=== PATIENT | female | born 1970 | race Asian ===

== ENCOUNTER → 2020-10-24 16:54 | Outpatient (CLI) | payer OTHER, SELFPAY ==
--- NOTE | 2020-10-24 | DI.MG.S_ITS ---
BILATERAL DIGITAL SCREENING MAMMOGRAM 3D/2D WITH CAD: 10/24/2020 CLINICAL: Routine screening. Comparison is made to exam dated: 08/25/2018 mammogram - outside location. The tissue of both breasts is extremely dense, which lowers the sensitivity of mammography. Current study was also evaluated with a Computer Aided Detection (CAD) system. No significant masses, calcifications, or other findings are seen in either breast. There has been no significant interval change. IMPRESSION: NEGATIVE There is no mammographic evidence of malignancy. A 1 year screening mammogram is recommended. This exam was interpreted at Station ID: [id number]. NOTE: For mammograms, a report in lay terms will be sent to the patient. Approximately 15% of breast malignancies will not be visualized mammographically. In the management of a palpable breast mass, a negative mammogram must not discourage biopsy of a clinically suspicious lesion. Electronically Signed By: Malick francis/ayesha:10/26/2020 08:42:58 letter sent: Normal Exam ACR BI-RADS Category 1: Negative 3341F
== END ==
PROVIDERS: PCP Internal Medicine; Referring Provider Internal Medicine; Visit Provider Internal Medicine
DX: Z12.31 Encounter for screening mammogram for malignant neoplasm of breast (principal)
CPT/HCPCS: 77063; 77067

== ENCOUNTER 2021-12-08 18:27 | Emergency (ER) | payer OTHER, SELFPAY ==
[2021-12-08 18:33] VITALS: BP 136/75; PULSE 107; RESP 18; TEMP 36.8; O2SAT 98; BMI 23.0
--- NOTE | 2021-12-08 19:03 | ED_ITS ---
HPI - Ear Problem General Chief complaint: Ear Stated complaint: RT. EAR PAIN /MIGRAINE/COVID POS.A WEEK AGO Time Seen by Provider: 12/08/21 18:32 Source: patient Mode of arrival: Ambulatory History of Present Illness HPI Narrative: Patient is a 51-year-old female presenting to the emergency department for evaluation of right ear pain. Patient states that she noticed right ear pain beginning on 12/03/2021 after using her ear buds. She states that she has also experienced a headache with intermittent episodes of nausea. Of note, patient states that approximately 1 week ago she was diagnosed with COVID-19. No fever, chills, chest pain, vomiting, diarrhea, constipation, abdominal pain, dysuria, hematuria, ear discharge, sore throat, changes in vision, or any other concerning symptoms reported. No further concerns were voiced at this time. Related Data Previous Rx's Medication Instructions Recorded [id number] 3.3 4 drp EAR-RIGHT QID #10 ml 12/08/21 mg-3 mg-10 mg-0.5 mg/mL ear drops,susp (Cortisporin-TC) Allergies Allergy/AdvReac Type Severity Reaction Status Date / Time No Known Drug Allergies Allergy Verified 12/08/21 18:45 Review of Systems Constitutional Constitutional: Denies chills, Denies fatigue, Denies fever(s), Denies frequent falls, Reports headache(s), Denies lethargy and Denies weakness Eyes Eyes: Denies loss of vision ENT Ears, Nose, Mouth, and Throat: Denies change in voice, Denies dizziness, Denies ear discharge, Reports otalgia (Right ear), Reports headache(s), Denies neck pain, Denies sore throat, Denies throat swelling and Reports other (Pressure in right ear) Cardiovascular Cardiovascular: Denies chest pain, Denies irregular heart rhythm, Denies lightheadedness, Denies palpitations, Denies dyspnea, Denies dyspnea on exertion and Denies orthopnea Respiratory Respiratory: Denies cough, Denies dyspnea, Denies dyspnea on exertion and Denies wheezing Gastrointestinal Gastrointestinal: Denies abdominal pain, Denies change in bowel habits, Denies diarrhea, Reports nausea and Denies vomiting Genitourinary Genitourinary: Denies hematuria, Denies flank pain, Denies urinary incontinence and Denies urinary urgency Musculoskeletal Musculoskeletal: Denies back pain, Denies muscle weakness, Denies neck pain, Denies numbness and Denies tingling Integumentary/Breasts Skin/Breast: Denies pruritus, Denies erythema, Denies rash and Denies wounds Neurologic Neurologic: Denies behavioral changes, Denies confusion, Denies dizziness, Denies frequent falls, Reports headache(s), Denies loss of vision, Denies numbness, Denies tingling and Denies weakness Psychiatric Psychiatric: Denies behavioral changes and Denies confusion Endocrine Endocrine: Denies fatigue and Denies palpitations Allergic/Immunologic Allergic/Immunologic: Denies throat swelling and Denies wheezing Exam Narrative Exam Narrative: GENERAL: 51 year old patient appears stated age. Well-developed patient, in mild distress. HEAD: Atraumatic. Normocephalic. EYES: Pupils equal round and reactive. Extraocular motions intact. No scleral icterus. No injection or drainage. ENT: Nose without bleeding, purulent drainage. Throat without erythema, to nsillar hypertrophy or exudate. Airway patent. Right external ear canal erythematous and slightly swollen. Right tympanic membrane visualized without significant swelling or bulging of the tympanic membrane. No active drainage appreciated from the right ear. No appreciable tenderness to traction of the pinna of the right ear. No mastoid tenderness. NECK: Trachea midline. Non tender CARDIOVASCULAR: Regular rate and rhythm without murmurs, gallops, or rubs. RESPIRATORY: Clear to auscultation. Breath sounds equal bilaterally. No wheezes, rales, or rhonchi. GASTROINTESTINAL: Abdomen soft, non-tender, nondistended. EXTREMITIES: No edema or joint tenderness. BACK: Nontender without deformity or crepitance. No flank tenderness. NEURO: AOx3. SKIN: No rash or erythema of visible areas Initial Vital Signs Initial Vital Signs: Vital Signs Temperature 98.2 F 12/08/21 18:33 Pulse Rate 107 H 12/08/21 18:33 Respiratory Rate 18 12/08/21 18:33 Blood Pressure 136/75 12/08/21 18:33 Pulse Oximetry 98 12/08/21 18:33 Course Course Course Narrative: 400 mg of ibuprofen and for otic drops of Cortisporin administered. Orders Ordered: Discontinued Medications Ibuprofen (Ibuprofen 400 Mg Tablet) 400 mg PO NOW ONE Stop: 12/08/21 18:59 Last Admin: 12/08/21 19:15 Dose: 400 mg Documented by: LEXX Neomycin/Polymyxin/Hydrocortisone (Neomy/Polym B/Hc Otic 10 Ml) 4 drops EAR- RIGHT NOW ONE Stop: 12/08/21 18:59 Last Admin: 12/08/21 19:33 Dose: Not Given Documented by: RAMIN Vital Signs Vital signs: Vital Signs - 8 hr 12/08/21 18:33 Temperature 98.2 F Pulse Rate 107 H Respiratory Rate 18 Blood Pressure 136/75 Pulse Oximetry 98 Medical Decision Making MDM Narrative Medical decision making narrative: Differential diagnosis to consider but not limited to acute otitis pain is worse is acute otitis externa versus serous otitis media versus ruptured tympanic membrane verses malignant otitis externa versus mastoiditis. Discussed physical exam findings with patient informed her that it does appear that she has a right external ear infection. Inform the patient about provide ibuprofen and otic antibacterial drops in the emergency department today. Remaining course of antibiotics will be sent to the patient's preferred pharmacy. Patient expresses understanding and agrees to the plan. Strict return precautions were discussed with the patient prior to discharge. She states at this time she is comfortable being discharged home is stable for discharge. Discharge Plan Departure Patient Disposition: Home Clinical Impression: Otitis externa, Earache Instructions: DI for Otitis Externa Activity Restrictions/Additional Instructions: *You have been diagnosed with right otitis externa, earache *What to do: *Please continue to take your regular medications as directed. [X] New medication prescriptions sent to your pharmacy: Paulette Martinez - Cortisporin (neomycin/polymyxin B/hydrocortisone) [ ] New medication written as a paper prescription [ ] No new medications given You were evaluated in the emergency department today for right ear pain. Physical examination revealed swelling and redness in the external ear canal of the right ear. This needs to be treated with a topical antibiotic, I have prescribed Cortisporin to your preferred pharmacy. Please take this medication as directed and complete the entire course. I recommend you follow-up the primary care provider within the next 2-3 days for further evaluation. Please do not hesitate to return to the emergency department if you experience fever, worsening ear pain, pain and swelling behind the right ear, discharge from the ear, or any other concerning symptoms. *Please follow up with your primary care provider in 2-3 days, call for an appointment. Let them know you were seen in the Emergency Department and that we ask that you be seen in follow up. We will electronically transmit a record of today's note if your PCP is in our system *If you do not have a primary care provider please contact the [facility] Resource line at [phone]. They will ask some questions about your medical history and help get you set up with a doctor in the community. *Return to Emergency Department if you should have any new, worsening or concerning symptoms, such as fever greater than 101 F, shaking chills, worsening pain, persistent vomiting or other bothersome symptoms. Prescriptions: New Cortisporin-TC 3.3-3-10-0.5 mg/mL drops,suspension 4 drp EAR-RIGHT QID Qty: 10 0RF Referrals: Savannah Guan ARNP [Primary Care Provider] -
[2021-12-08] MEDS: IBUPROFEN 400 MG TABLET PO (19:15)
== END 2021-12-08 19:33 | disposition home or self-care (01) ==
PROVIDERS: Emergency Provider Physician Assistant; PCP Internal Medicine
DX: H60.91 Unspecified otitis externa, right ear (principal)
CPT/HCPCS: 99282; 99283

== ENCOUNTER → 2023-11-09 10:13 | Outpatient (CLI) | payer OTHER, SELFPAY ==
--- NOTE | 2023-11-09 10:15 | DI.MG.S_ITS ---
BILATERAL DIGITAL DIAGNOSTIC MAMMOGRAM 3D/2D: 11/09/2023 CLINICAL: Left lump. Comparison is made to exams dated: 10/24/2020 mammogram - [facility] and 08/25/2018 mammogram - outside location. Both breasts are heterogeneously dense, which may obscure small masses (category c / 51-75% glandular tissue). There are grouped punctate calcifications in the right breast at 12 o'clock middle depth. No other significant masses, calcifications, or other findings are seen in either breast. IMPRESSION: INCOMPLETE: NEEDS ADDITIONAL IMAGING EVALUATION The grouped punctate calcifications in the right breast are probably benign. A follow-up right mammogram in 6 months is recommended. There is no mammographic abnormality seen in the left axilla to correspond with the pain in the left axilla, however, targeted ultrasound of the left breast is recommended and will be performed immediately following this exam. Based on the Tyrer Cuzick model (a risk assessment model) the patient's lifetime risk is 13.7% and her 10 year risk is 3.4%. According to the ACR, ACS, and NCCN guidelines, an annual breast MRI exam along with mammogram is recommended if the patient's lifetime risk is 20% or greater. This exam was interpreted at Station ID: [id number]. NOTE: For mammograms, a report in lay terms will be sent to the patient. Approximately 15% of breast malignancies will not be visualized mammographically. In the management of a palpable breast mass, a negative mammogram must not discourage biopsy of a clinically suspicious lesion. Electronically Signed By: Selina Gates M.D. lk/:11/12/2023 09:59:00 Entry: - 11/12/2023 09:59:00 ACR BI-RADS Category 0: Incomplete 3340F
--- NOTE | 2023-11-09 10:15 | DI.US.S_ITS ---
ULTRASOUND OF LEFT AXILLA: 11/09/2023 CLINICAL: Palpable left axilla lump. Comparison is made to exams dated: 11/09/2023 mammogram, 10/24/2020 mammogram - , and 08/25/2018 mammogram - outside location. Ultrasound of the left axilla was performed on the area of interest. IMPRESSION: NEGATIVE There is no sonographic evidence of malignancy. There is no mammographic or sonographic abnormality seen in the left axilla to correspond with the palpable abnormality in the left axilla, however, clinical followup is recommended. Return to annual left mammogram screening schedule is recommended. 6 month mammogram follow up on the right is recommended for right breast calcifications. This exam was interpreted at Station ID: [id number]. Electronically Signed By: Selina scott/:11/12/2023 10:00:09 Entry: - 11/12/2023 10:21:44 letter sent: Followup Recommended Ultrasound BI-RADS: 1 Negative
== END ==
LOC: MAMMO 10:13
PROVIDERS: PCP Internal Medicine; Referring Provider Internal Medicine; Visit Provider Internal Medicine
DX: R92.2 Inconclusive mammogram (principal); R92.1 Mammographic calcification found on diagnostic imaging of breast; N63.20 Unspecified lump in the left breast, unspecified quadrant; R92.333 Mammographic heterogeneous density, bilateral breasts; N64.4 Mastodynia
CPT/HCPCS: 76642; 77066; G0279

== ENCOUNTER → 2024-05-18 13:30 | Outpatient (CLI) | payer OTHER, SELFPAY ==
--- NOTE | 2024-05-18 13:31 | DI.MG.S_ITS ---
UNILATERAL RIGHT DIGITAL DIAGNOSTIC MAMMOGRAM 3D/2D SHORT-TERM FOLLOW-UP: 05/18/2024 CLINICAL: Patient returns for a 6 month follow up. Comparison is made to exams dated: 08/25/2018 mammogram - outside location, 10/24/2020 mammogram, 11/09/2023 mammogram, and 11/09/2023 ultrasound - [facility]. The right breast is heterogeneously dense, which may obscure small masses (category c / 51-75% glandular tissue). There are stable grouped punctate calcifications in the right breast at 12 o'clock middle depth. This was not seen on the prior ultrasound. No other significant masses or calcifications are seen in the breast. IMPRESSION: PROBABLY BENIGN The stable grouped punctate calcifications in the right breast are probably benign. A follow-up mammogram in 6 months is recommended to demonstrate stability. Based on the Tyrer Cuzick model (a risk assessment model) the patient's lifetime risk is 13.7% and her 10 year risk is 3.4%. According to the ACR, ACS, and NCCN guidelines, an annual breast MRI exam along with mammogram is recommended if the patient's lifetime risk is 20% or greater. This exam was interpreted at Station ID: [id number]. NOTE: For mammograms, a report in lay terms will be sent to the patient. Approximately 15% of breast malignancies will not be visualized mammographically. In the management of a palpable breast mass, a negative mammogram must not discourage biopsy of a clinically suspicious lesion. Electronically Signed By: Scott mar/ayesha:05/18/2024 16:29:57 letter sent: Followup Recommended ACR BI-RADS Category 3: Probably benign 3343F
== END ==
PROVIDERS: PCP Internal Medicine; Referring Provider Internal Medicine; Visit Provider Internal Medicine
DX: R92.8 Other abnormal and inconclusive findings on diagnostic imaging of breast (principal); R92.1 Mammographic calcification found on diagnostic imaging of breast; R92.331 Mammographic heterogeneous density, right breast
CPT/HCPCS: 77065; G0279

== ENCOUNTER → 2024-12-27 13:00 | Outpatient (CLI) | payer OTHER, SELFPAY ==
--- NOTE | 2024-12-27 13:02 | DI.MG.S_ITS ---
MM diagnostic mammo BI: 12/27/2024. BI-RADS: 3 CLINICAL: 54-year old female for bilateral diagnostic mammogram. Tyrer-Cuzick lifetime risk of 8.3%. No personal or first-degree family history of breast cancer. PRIOR EXAMS 05/18/2024, 11/09/2023, 10/24/2020. MAMMOGRAPHY TECHNIQUE: 2D and 3D (tomosynthesis) digital mammographic views obtained, with additional images as needed for full coverage. Current study was also evaluated with a Computer Aided Detection (CAD) system. DENSITY C. The breasts are heterogeneously dense, which may obscure small masses. MAMMOGRAPHY FINDINGS Right: Upper Outer at 10:00, Middle depth: There are probably-benign grouped punctate calcifications that are unchanged in number. Left: No suspicious mass, asymmetry, microcalcification, or other abnormality seen. IMPRESSION: Right (Calcification): Upper Outer at 10:00, Middle depth * Probably Benign. Left * No evidence of malignancy. RECOMMENDATIONS Right * Six month followup with diagnostic mammography. Left * Annual screening mammography in one year. COMMENTS: Findings and recommendations were conveyed to the patient during today's evaluation. OVERALL ASSESSMENT CATEGORY BI-RADS-3: Probably Benign. ELECTRONICALLY SIGNED: Romy Mena M.D. on 12/27/2024 at 02:02:37 PM PT Interpreting Station ID: [id number]
== END ==
LOC: MAMMO 13:02
PROVIDERS: PCP Internal Medicine; Referring Provider Family Medicine; Visit Provider Family Medicine
DX: R92.8 Other abnormal and inconclusive findings on diagnostic imaging of breast (principal); R92.1 Mammographic calcification found on diagnostic imaging of breast; R92.333 Mammographic heterogeneous density, bilateral breasts
CPT/HCPCS: 77066; G0279

== ENCOUNTER → 2025-07-27 12:44 | Outpatient (CLI) | payer OTHER, SELFPAY ==
--- NOTE | 2025-07-27 12:45 | DI.MG.S_ITS ---
MM diagnostic mammo unilat RT: 07/27/2025. BI-RADS: 3 CLINICAL: 55-year old female for right diagnostic mammogram that is a follow-up to diagnostic mammogram on 12/27/2024. Tyrer-Cuzick lifetime risk of 8.2%. No personal or first-degree family history of breast cancer. PRIOR EXAMS: Mammogram(s): 12/27/2024, 05/18/2024, 11/09/2023, 10/24/2020. MAMMOGRAPHY TECHNIQUE: 2D and 3D (tomosynthesis) digital mammographic views obtained, with additional images as needed for full coverage. Current study was also evaluated with a Computer Aided Detection (CAD) system. DENSITY Right: C. The breast is heterogeneously dense, which may obscure small masses. MAMMOGRAPHY FINDINGS Right: Upper Outer at 10:00, Middle depth, measuring 0.2cm: Correlating with prior imaging concern there are grouped punctate calcifications that are unchanged in size and appearance. IMPRESSION: Right (Calcification): Upper Outer at 10:00, Middle depth, measuring 0.2cm * Probably Benign. RECOMMENDATIONS Right: Upper Outer at 10:00, Middle depth * Six month followup with diagnostic mammography. When the patient returns for short-term unilateral followup, a mammogram for the contralateral breast will also be due. COMMENTS: Findings and recommendations were conveyed to the patient during today's evaluation. OVERALL ASSESSMENT CATEGORY BI-RADS-3: Probably Benign. ELECTRONICALLY SIGNED: Meghann Tracy M.D. on 07/27/2025 at 03:26:20 PM PT Interpreting Station ID: [id number]
== END ==
LOC: MAMMO 12:45
PROVIDERS: PCP Family Medicine; Referring Provider Family Medicine; Visit Provider Family Medicine
DX: R92.8 Other abnormal and inconclusive findings on diagnostic imaging of breast (principal); R92.331 Mammographic heterogeneous density, right breast; R92.1 Mammographic calcification found on diagnostic imaging of breast
CPT/HCPCS: 77065; G0279

== ENCOUNTER 2025-08-31 09:15 | Emergency (ER) | payer OTHER, SELFPAY ==
[2025-08-31 09:33] VITALS: BP 118/65; PULSE 74; RESP 16; TEMP 36.7; O2SAT 96; BMI 25.4
--- NOTE | 2025-08-31 09:33 | EKG_ITS ---
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
--- NOTE | 2025-08-31 09:39 | DI.RAD.S_ITS ---
PROCEDURE: XR CHEST 1V INDICATIONS: CHEST PAIN TECHNIQUE: One view of the chest was acquired. COMPARISON: None. FINDINGS AND IMPRESSION: No airspace consolidation or pleural effusion on this single view study. Normal heart size. Unremarkable osseous structures. Dictated by: Rudi Shrestha M.D. on 08/31/2025 at 10:05 Approved by: Rudi Shrestha M.D. on 08/31/2025 at 10:05
[2025-08-31 09:48] LABS: Add Manual Diff / Slide Review NO; Hematocrit 42.1 % (36-46); Hemoglobin 14.1 g/dL (12.0-16.0); Lymphocytes Absolute Auto 1400 /uL (1100-4500); Mean Corpuscular HGB Conc 33.5 % (30-36); Mean Corpuscular Hemoglobin 28.5 PG (26-34); Mean Corpuscular Volume 85.0 fL (80-100); Platelet Count 293 X10^3/uL (150-400)
[2025-08-31 09:56] VITALS: PULSE 82; RESP 40; O2SAT 100
[2025-08-31 10:00] VITALS: BP 126/64; PULSE 75; RESP 21; O2SAT 99
[2025-08-31 10:02] LABS: Alanine Aminotransferase 23 IU/L (<35); Albumin 4.8 g/dL (3.5-5.0); Albumin Globulin Ratio 1.5 (1.0-2.8); Alkaline Phosphatase 70 U/L (38-126); Blood Urea Nitrogen 19 mg/dL (7-17); Calcium 9.5 mg/dL (8.4-10.2); Carbon Dioxide 29 mmol/L (22-32); Chloride 105 mmol/L (98-107); Estimated Glomerular Filt Rate > 60 mL/min (>60); Globulin 3.2 g/dL (1.7-4.1); Glucose 116 mg/dL (70-99); HEMOLYSIS < 15 (0-50); Lipase 63 U/L (23-300); Magnesium 2.1 mg/dL (1.6-2.3); Potassium 4.2 mmol/L (3.4-5.1); Sodium 140 mmol/L (137-145); Total Protein 8.0 g/dL (6.3-8.2)
[2025-08-31 10:13] LABS: NT-proBNP (BNP-Adult 18+) < 20 pg/mL (<125); Troponin I < 0.012 ng/mL (0.01-0.034)
[2025-08-31 10:30] VITALS: BP 114/69; PULSE 72; RESP 22; O2SAT 97
[2025-08-31 11:00] VITALS: BP 130/69; PULSE 67; RESP 21; O2SAT 98
--- NOTE | 2025-08-31 11:13 | PC.NURSE ---
pt reports feeling comfortable.
--- NOTE | 2025-08-31 11:20 | ED.CHESTPAIN ---
HPI - Chest Pain General Chief Complaint: Chest Pain Stated Complaint: Fell, fainted, chest pain , this morning Time Seen by Provider: 08/31/25 09:37 Source: patient Mode of arrival: Ambulatory Limitations: no limitations History of Present Illness HPI narrative: This is a 55-year-old female presenting to emergency department due to a syncopal episode yesterday. States that yesterday she was feeling some heartburn in his some pain in her chest and then had a syncopal episode. She does not report any head pain incident report any pain in the rest of her extremities. She has not presenting with any chest pain or shortness of breath currently. She has no cardiac history and no other medical history other than gastric ulcer. History of GERD as well. Related Data Previous Rx's ?Medication ?Instructions ?Recorded [id number] 3.3 4 drp EAR-RIGHT QID #10 mL 12/08/21 mg-3 mg-10 mg-0.5 mg/mL ear drops,susp (Cortisporin-TC) pantoprazole 20 mg tablet,delayed 20 mg PO DAILY #20 tabs 08/31/25 release Allergies Allergy/AdvReac Type Severity Reaction Status Date / Time No Known Drug Allergies Allergy Verified 08/31/25 09:33 Review of Systems Review of Systems Narrative: GENERAL: Denies chills, fatigue, malaise, fever, sweats. HEENT: Denies sinus pain, ear pain, sore throat, difficulty swallowing, dizziness. RESPIRATORY: Denies dyspnea, cough, wheezing, hemoptysis, sputum. CARDIOVASCULAR: Denies chest pain, palpitations, orthopnea, edema, GASTROINTESTINAL: Denies nausea, vomiting, abdominal pain, diarrhea, constipation, melena. : Denies dysuria, frequency, incontinence, hematuria, urinary retention. MUSCULOSKELETAL: denies weakness, joint pain, or bony pain SKIN: Denies rash, skin lesions, or other NEUROLOGIC: Denies weakness, headache, numbness, change in speech, confusion, seizures, incoordination. PSYCHIATRIC: No concerning psychosocial issues. 12 point review of systems is negative except for those stated above Patient History Social History Smoking Status: Never smoker Smoking Status: Never smoker Exam Narrative Exam Narrative: GENERAL: Well-developed patient, in mild distress. HEAD: Atraumatic. Normocephalic. EYES: Pupils equal round and reactive. Extraocular motions intact. No scleral icterus. No injection or drainage. ENT: Nose without bleeding, purulent drainage. Throat without erythema, tonsillar hypertrophy or exudate. Airway patent. NECK: Trachea midline. Non tender EXTREMITIES: No edema or joint tenderness. NEURO: AOx3. Cranial nerves 2-12 intact SKIN: No rash or erythema of visible areas CARDIOVASCULAR: Regular rate and rhythm without murmurs, gallops, or rubs. RESPIRATORY: Clear to auscultation. Breath sounds equal bilaterally. No wheezes, rales, or rhonchi. GASTROINTESTINAL: Abdomen soft, non-tender, nondistended. BACK: Nontender without deformity or crepitance. No flank tenderness. Initial Vital Signs Initial Vital Signs: Vital Signs Temperature 98.1 F 08/31/25 09:33 Pulse Rate 74 08/31/25 09:33 Respiratory Rate 16 08/31/25 09:33 Blood Pressure 118/65 08/31/25 09:33 Pulse Oximetry 96 08/31/25 09:33 Oxygen Delivery Method Room Air 08/31/25 09:33 Course Orders Ordered: ED Orders 08/31/25 09:39 XR chest 1V Stat EKG-12 Lead Stat 08/31/25 09:40 Complete Blood Count AUTO DIFF Stat Comprehensive Metabolic Panel Stat Lipase Stat Magnesium Stat NT-proBNP (BNP-Adult 18+) Stat Troponin I Stat 08/31/25 11:23 D Dimer Stat Discontinued Medications Ceftriaxone Sodium 1,000 mg/ (Sodium Chloride) 100 mls @ 200 mls/hr IV NOW ONE Stop: 08/31/25 10:23 Last Admin: 08/31/25 10:26 Dose: Not Given Documented By: F Azithromycin 500 mg/ Dextrose 250 mls @ 250 mls/hr IV NOW ONE Stop: 08/31/25 10:23 Last Admin: 08/31/25 10:25 Dose: Not Given Documented By: SGF Vital Signs Vital signs: Vital Signs - 8 hr 08/31/25 09:33 08/31/25 09:56 08/31/25 10:00 Temperature 98.1 F Pulse Rate 74 82 Respiratory Rate 16 40 H Blood Pressure 118/65 126/64 Pulse Oximetry 96 100 Oxygen Delivery Method Room Air 08/31/25 10:00 08/31/25 10:30 08/31/25 10:30 Temperature Pulse Rate 75 72 Respiratory Rate 21 22 Blood Pressure 114/69 Pulse Oximetry 99 97 Oxygen Delivery Method 08/31/25 11:00 08/31/25 11:00 Temperature Pulse Rate 67 Respiratory Rate 21 Blood Pressure 130/69 Pulse Oximetry 98 Oxygen Delivery Method MDM - Chest Pain Lab Data 08/31/25 09:40 08/31/25 09:40 Labs: Lab Results 08/31/25 Range/Units 09:40 WBC 4.7 (4.5-11.0) X10^3/uL RBC 4.96 (4.0-5.2) X10^6/uL Hgb 14.1 (12.0-16.0) g/dL Hct 42.1 (36-46) % MCV 85.0 (80-100) fL MCH 28.5 (26-34) PG MCHC 33.5 (30-36) % RDW 13.2 (11.6-14.8) % Plt Count 293 (150-400) X10^3/uL Neut % (Auto) 57.7 (50-75) % Lymph % (Auto) 29.5 (25-40) % [place] % (Auto) 9.1 (3-14) % Eos % (Auto) 2.9 (2-4) % Baso % (Auto) 0.8 (0-2) % Neut # (Auto) 2700 (4305-2697) /uL Lymph # (Auto) 1400 (2450-0561) /uL [place] # (Auto) 400 (0-900) /uL Eos # (Auto) 100 (0-450) /uL Baso # (Auto) 0 (0-100) /uL D-Dimer < 215 (<500) ng/ml Sodium 140 (137-145) mmol/L Potassium 4.2 (3.4-5.1) mmol/L Chloride 105 (98-107) mmol/L Carbon Dioxide 29 (22-32) mmol/L BUN 19 H (7-17) mg/dL Creatinine 0.68 (0.52-1.04) mg/dL Estimated GFR > 60 (>60) mL/min BUN/Creatinine Ratio 27.9 H (6-22) Glucose 116 H (70-99) mg/dL Calcium 9.5 (8.4-10.2) mg/dL Magnesium 2.1 (1.6-2.3) mg/dL Total Bilirubin 0.4 (0.2-1.3) mg/dL AST 32 (14-36) IU/L ALT 23 (<35) IU/L Alkaline Phosphatase 70 (38-126) U/L Troponin I < 0.012 (0.01-0.034) ng/mL NT-Pro-B Natriuret Pep < 20 (<125) pg/mL Total Protein 8.0 (6.3-8.2) g/dL Albumin 4.8 (3.5-5.0) g/dL Globulin 3.2 (1.7-4.1) g/dL Albumin/Globulin Ratio 1.5 (1.0-2.8) Lipase 63 (23-300) U/L Urine Dip Bedside Urine Glucose Negative Bedside Urine Bilirubin - Negative Bedside Urine Ketone - Negative Urine Specific [place] 1.010 Bedside Urine Occult Blood - Negative Bedside Urine pH 7.0 Bedside Urine Protein - Negative Bedside Urine Urobilinogen - Negative Bedside Urine Nitrite - Negative Bedside Urine Leukocytes - Negative Esterase Imaging Data Chest x-ray: Radiologist's Impression: [place] [address] XRay Report Signed Patient: Marlys Hsu MR#: [id number] : 1970 Acct:[id number] Age/Sex: 55 / F Date of Service: 08/31/25 Loc: ED Accession Number: [id number] Procedure: XR chest 1V Ordering Provider: Ron Boyle MD PROCEDURE: XR CHEST 1V INDICATIONS: CHEST PAIN TECHNIQUE: One view of the chest was acquired. COMPARISON: None. FINDINGS AND IMPRESSION: No airspace consolidation or pleural effusion on this single view study. Normal heart size. Unremarkable osseous structures. Dictated by: Ruid Shrestha M.D. on 08/31/2025 at 10:05 Approved by: Rudi Shrestha M.D. on 08/31/2025 at 10:05 ECG Data Interpretation: 0933: Normal sinus rhythm with a rate of 80 beats per minute, occasional PVCs. No ST elevation or T-wave abnormalities. MDM Narrative Medical decision making narrative: ED course: This is a otherwise healthy review 55-year-old female presenting to the emergency department due to a episode of chest pain last night with a syncopal episode. She is not reporting any chest pain currently. Her workup was very reassuring. CBC unremarkable. Lipase, magnesium, BNP, troponin with a normal limits. CMP unremarkable. UA unremarkable. D-dimer negative. EKG reassuring, chest x-ray showed no abnormalities. Patient does have a history of gastric ulcer in GERD which may have caused the symptoms she was experiencing. She had a completely normal neuro exam as well no concern for any kind of intracranial bleed. Heart score of 2 and we will discharge with PCP follow up CC: Syncopal episode Complicating co-morbidities: None Data collected from: Previous notes Medical records reviewed: patient was last seen in this emergency department 3 years ago for ear pain. At that time and had no pertinent medical history. Differential considered, but not limited to: Pulmonary embolism, STEMI, NSTEMI, intracranial bleed, vasovagal episode, GERD Exam documented above, pertinent findings include: Completely normal physical exam Lab Test results independently reviewed as above. Pertinent findings: All lab work within normal limits Imaging studies independently reviewed: Chest x-ray unremarkable Scores Used: Heart score of 2 MIPS Elements: None Consultations: None Treatments: None Re-evaluations: None Discussion: Discussed plan with the patient was comfortable with the plan Diagnosis: Syncopal episode Disposition: see below, along with detailed discharge instructions that have been reviewed with patient as well as indications for ED re-evaluation and additional outpatient follow up Discharge Plan Departure Patient Disposition: Home Clinical Impression: Syncopal episodes Activity Restrictions/Additional Instructions: Thank you for coming to the [facility] Emergency Department today. Your lab work today was very reassuring. There was no evidence of a heart attack, blood clot in your lung, in your neuro exam was very reassuring as well and I have low concern for any kind of intracranial bleed. This episode chest pain maybe due to the chronic GERD you have. You may take the prescribed medication to help with your gastric ulcer and GERD symptoms. Please return to the emergency department if you develop any new or worsening chest pain, loss of conscious, or any other concerning signs or symptoms. I hope you feel better soon. Please follow up with your primary care provider within a week if your symptoms continue. If you do not have a primary care provider please contact the [facility] Resource line at [phone]. They will ask some questions about your medical history and help you get set up with a provider in the community. Prescriptions: New pantoprazole 20 mg tablet,delayed release (DR/EC) 20 mg PO DAILY Qty: 20 0RF No Action Cortisporin-TC 3.3-3-10-0.5 mg/mL drops,suspension 4 drp EAR-RIGHT QID Qty: 10 0RF Referrals: Gisela Nair MD [Primary Care Provider, Family Practice] Stand Alone Forms: Patient Portal/API
[2025-08-31 11:34] VITALS: PULSE 82; RESP 30; TEMP 36.6; O2SAT 96
== END 2025-08-31 11:54 | disposition home or self-care (01) ==
PROVIDERS: Emergency Medicine; Emergency Provider Physician Assistant Medical; PCP Family Medicine
DX: R55 Syncope and collapse (principal); R07.9 Chest pain, unspecified; I49.3 Ventricular premature depolarization
CPT/HCPCS: 36415; 71045; 80053; 81003; 83690; 83735; 83880; 84484; 85025; 85379; 93005; 93010; 99283; 99284